=== PATIENT | male | born 1935 | race Caucasian/White ===

== ENCOUNTER 2016-12-18 07:18 | Inpatient (IN) | payer OTHER ==
[2016-12-18 07:29] VITALS: BMI 29.8
[2016-12-18] MEDS ORDERED: NS 1000 ML 1,000 ML ONE (07:31)
[2016-12-18] MEDS ORDERED: ADENOCARD INJ 6 MG ONE (07:32)
[2016-12-18] MEDS ORDERED: ADENOCARD INJ 6 MG IVP ONE (07:38)
[2016-12-18] MEDS ORDERED: NS 1000 ML 1,000 ML IV ONE (07:40)
[2016-12-18 07:49] LABS: BASOPHILS % (AUTO) 0.4 % (0.2-1.0); EOSINOPHILS % (AUTO) 0.1 % (0.9-2.9); HEMATOCRIT 41.6 % (42.0-54.0); HEMOGLOBIN 14.4 g/dL (13.5-18.0); LYMPHOCYTES # (AUTO) 0.4 X10^3/uL (1.3-2.9); LYMPHOCYTES % (AUTO) 3.6 % (21.0-51.0); MEAN CORPUSCULAR HEMOGLOBIN 32.2 pg (27.0-34.0); MEAN CORPUSCULAR HGB CONC 34.6 g/dL (33.0-35.0); MEAN CORPUSCULAR VOLUME 93.2 fL (80.0-100.0); MEAN PLATELET VOLUME 8.1 fL (7.4-11.0); MONOCYTES # (AUTO) 0.5 x10^3/uL (0.3-0.8); MONOCYTES % (AUTO) 5.2 % (0.0-13.0); NEUTROPHILS # (AUTO) 9.1 x10^3/uL (2.2-4.8); NEUTROPHILS % (AUTO) 90.7 % (42.0-75.0); PLATELET COUNT 113 X10^3/uL (150.0-450.0); RED BLOOD COUNT 4.46 X10^6/uL (4.7-6.0); RED CELL DISTRIBUTION WIDTH 13.8 % (11.6-16.5)
--- NOTE | 2016-12-18 07:51 | DR.PBODFLE ---
HPI - PCP Primary Care Physician: jose m - Complaint/Symptoms Chief Complaint Doctors Comments: Family member reports that on was not feeling well, following day was on the road stranded in car for prolong time. Today progressing got worse. He does not have a history of cardiopulmonary disease. He had a stroke several years ago. In the cardiac room his EKG showed A.Fib rate 173, sponstaneously converted to tachycardia. Patient given adenosine x1. Continued to be in tachycardia, rate variable. Chief Complaint:: family stated he has been talking out of his head for over a week. 4 days ago he got worse - Source History Provided: Patient - Mode of arrival Mode of Arrival: Ambulatory - Timing Onset of Chief Complaint: 12/11/16 <MARIUM CALERO - Last Filed: 12/18/16 07:47> - Time seen Time seen: 07:45 - HPI Comment HPI Comment: PATIENT IS 81YR OLD MALE. - Nurses notes reviewed Nurses Notes Review: Yes <MARIAH TEJEDA - Last Filed: 12/18/16 09:54> PMH - Past Surgical History Past Surgical History: Yes - Family History History of Family Medical Conditions: Yes - Social Does patient currently use any type of tobacco product: No Have you used tobacco products in the last 12 months: No Type of Tobacco Use: None Does any household member use tobacco: No Alcohol Use: None - infectious screening In the last 2 months have you had wt loss of >10#?: NO Have you had fever, night sweats or hemotysis?: No Have you traveled outside the country in the last 6 months?: No Isolation: Standard <MARIUM CALERO - Last Filed: 12/18/16 07:47> ROS (Ped) - Review of Systems Eyes: No Symptoms Reported ENTM: No Symptoms Reported Respiratoy: No Symptoms Reported Cardiovascular: No Symptoms Reported Gastrointestinal/Abdominal: No Symptoms Reported Genitourinary: No Symptoms Reported Neurological: No Symptoms Reported Musculoskeletal: No Symptoms Reported Integumentary: No Symptoms Reported Hematologic/Lymphatic: No Symptoms Reported Endocrine: No Symptoms Reported Psychiatric: No Symptoms Reported All Other Systems: Reviewed and Negative <MARIUM CALERO - Last Filed: 12/18/16 07:47> PE - General Limitations: No Limitations General Appearance: Alert, In No Apparent Distress - Head Head Exam: Normal Inspection, Atraumatic - Eyes Eye exam: Normal Appearance, PERRL, EOMI - ENT ENT Exam: Normal Exam External Ear Exam: Normal External Inspection TM/Canal Exam: Bilateral Normal Nose Exam: Normal Nose Exam Mouth Exam: Normal Inspection Throat Exam: Normal Inspection - Neck Neck Exam: Normal Inspection - Chest Chest Inspection: Normal Inspection - Respiratory Respiratory Exam: Normal Lung Sounds Bilat Respiratory Exam: Bilateral Clear to Auscultation - Cardiovascular Cardiovascular Exam: Regular Rate, Tachycardia - Abdominal Exam Abdominal Exam: Normal Inspection Abdominal Tenderness: negative: RUQ, RLQ, LUQ, LLQ, Epigastrium, Suprapubic, Diffuse, Mild, Moderate, Severe, Other - Extremities Extremities Exam: Normal Inspection - Back Back Exam: Normal Inspection - Neurologic Neurological Exam: Alert, Oriented X3, CN II-XII Intact - Psychiatric Psychiatric Exam: Normal Affect <MARIUM CALERO - Last Filed: 12/18/16 07:47> MDM - Differential Diagnosis Differential diagnosis: negative: Abrasion (A FIB, [place], NEAR [place], [place], GENERALIZE WEAKNESS.) <MARIAH TEJEDA - Last Filed: 12/18/16 09:54> Course - Treatment Treatment: SEE ORDERS. ADENOSINE IN ED. CARDIOZINE DRIP IN ED. A FIB RATE IMPROVE. - Consultation Consultation Comments: DR MONTOYA WILL ADMIT PATIENT. - Education/Counseling Education/Counseling: Patient, Family, Education Educated On: Treatment, Diagnosis <MARIAH TEJEDA - Last Filed: 12/18/16 09:54> ROR - Labs Reviewed Result Diagrams: 12/18/16 07:35 12/18/16 07:35 <MARIUM CALERO - Last Filed: 12/18/16 07:47> - Labs Reviewed Laboratory Results Reviewed?: Yes Result Diagrams: 12/18/16 07:35 12/18/16 07:35 - XRAY XRAY Findings: REPORT DISCUSS WITH PATIENT. - EKG Rhythm: Afib (EKG NOTED) <MARIAH TEJEDA - Last Filed: 12/18/16 09:54> - Labs Reviewed Laboratory: WBC 10.0 X10^3/uL (3.6-10.0) 12/18/16 07:35 RBC 4.46 X10^6/uL (4.7-6.0) L 12/18/16 07:35 Hgb 14.4 g/dL (13.5-18.0) 12/18/16 07:35 Hct 41.6 % (42.0-54.0) L 12/18/16 07:35 MCV 93.2 fL (80.0-100.0) 12/18/16 07:35 MCH 32.2 pg (27.0-34.0) 12/18/16 07:35 MCHC 34.6 g/dL (33.0-35.0) 12/18/16 07:35 RDW 13.8 % (11.6-16.5) 12/18/16 07:35 Plt Count 113 X10^3/uL (150.0-450.0) L 12/18/16 07:35 Plt Count Comment Decreased (ADEQUATE) 12/18/16 07:35 MPV 8.1 fL (7.4-11.0) 12/18/16 07:35 Neut % 90.7 % (42.0-75.0) H 12/18/16 07:35 Lymph % 3.6 % (21.0-51.0) L 12/18/16 07:35 [place] % 5.2 % (0.0-13.0) 12/18/16 07:35 Eos % 0.1 % (0.9-2.9) L 12/18/16 07:35 Baso % 0.4 % (0.2-1.0) 12/18/16 07:35 Neut # 9.1 x10^3/uL (2.2-4.8) H 12/18/16 07:35 Lymph # 0.4 X10^3/uL (1.3-2.9) L 12/18/16 07:35 [place] # 0.5 x10^3/uL (0.3-0.8) 12/18/16 07:35 Eos # 0.0 x10^3/uL (0.0-0.2) 12/18/16 07:35 Baso # 0.0 X10^3/uL (0.0-0.1) 12/18/16 07:35 Absolute Nucleated RBC 0.1 /100WBC 12/18/16 07:35 Total Counted 100 12/18/16 07:35 Neutrophils % (Manual) 87 % (39-76) H 12/18/16 07:35 Band Neutrophils % 5 % (0-10) 12/18/16 07:35 Lymphocytes % (Manual) 4 % (13-43) L 12/18/16 07:35 Monocytes % (Manual) 4 % (4-9) 12/18/16 07:35 Plt Morphology Comment Normal (NORMAL) 12/18/16 07:35 RBC Morphology Normal (NORMAL) 12/18/16 07:35 INR Target Range - 12/18/16 07:35 INR 2.05 (0.8-1.3) H 12/18/16 07:35 PTT 39.0 SECONDS (22.9-36.5) H 12/18/16 07:35 PTT Comment - 12/18/16 07:35 Sodium 138 mmol/L (136-145) 12/18/16 07:35 Corrected Sodium 139 mmol/L (136-145) 12/18/16 07:35 Potassium 3.2 mmol/L (3.5-5.1) L 12/18/16 07:35 Chloride 101 mmol/L (98-107) 12/18/16 07:35 Carbon Dioxide 28.1 mmol/L (21-32) 12/18/16 07:35 BUN 22 mg/dL (7-18) H 12/18/16 07:35 Creatinine 1.60 mg/dL (0.70-1.30) H 12/18/16 07:35 Est GFR (MDRD) Af Amer 53 (>60) L 12/18/16 07:35 Est GFR (MDRD) Non-Af 44 (>60) L 12/18/16 07:35 Glucose 121 mg/dL (65-99) H 12/18/16 07:35 Calcium 8.4 mg/dL (8.5-10.1) L 12/18/16 07:35 Corrected Calcium 9.5 mg/dL (8.5-10.1) 12/18/16 07:35 Magnesium 2.0 mg/dL (1.7-2.9) 12/18/16 07:35 Total Bilirubin 1.80 mg/dL (0.2-1.0) H 12/18/16 07:35 AST 53 Units/L (15-37) H 12/18/16 07:35 ALT 31 Units/L (12-78) 12/18/16 07:35 Alkaline Phosphatase 126 Units/L (46-116) H 12/18/16 07:35 Creatine Kinase 159 Units/L (39-308) 12/18/16 07:35 CK-MB (CK-2) 2.0 ng/mL (0-4.0) 12/18/16 07:35 CK/CKMB % Calc 1.3 % (<4) 12/18/16 07:35 Troponin I < 0.02 ng/mL (0-1.5) 12/18/16 07:35 Total Protein 6.8 g/dL (6.4-8.2) 12/18/16 07:35 Albumin 2.6 g/dL (3.4-5.0) L 12/18/16 07:35 Globulin 4.2 g/dL (2.5-4.5) 12/18/16 07:35 Albumin/Globulin Ratio 0.6 Ratio (1.1-2.1) L 12/18/16 07:35 Specimen Type Clean catch urine 12/18/16 07:50 Urine Color Yellow (YELLOW) 12/18/16 07:50 Urine Appearance Hazy (CLEAR) 12/18/16 07:50 Urine pH 6.0 (5.0 - 8.0) 12/18/16 07:50 Ur Specific [place] 1.015 (1.000-1.030) 12/18/16 07:50 Urine Protein 3+ (NEGATIVE) 12/18/16 07:50 Urine Glucose (UA) Negative (NEGATIVE) 12/18/16 07:50 Urine Ketones Negative (NEGATIVE) 12/18/16 07:50 Urine Occult Blood 5+ (NEGATIVE) 12/18/16 07:50 Urine Nitrite Negative (NEGATIVE) 12/18/16 07:50 Urine Bilirubin 1+ (NEGATIVE) 12/18/16 07:50 Urine Urobilinogen 4+ (NORMAL) 12/18/16 07:50 Ur Leukocyte Esterase Negative (NEGATIVE) 12/18/16 07:50 Urine RBC 5-10 /HPF (NEGATIVE) 12/18/16 07:50 Urine WBC 0-3 /HPF (NEGATIVE) 12/18/16 07:50 Ur Squamous Epith Cells Few /HPF (NEGATIVE) 12/18/16 07:50 Amorphous Sediment 1+ /HPF (NEGATIVE) 12/18/16 07:50 Urine Bacteria Trace /HPF (NEGATIVE) 12/18/16 07:50 Granular Casts Few /LPF (NEGATIVE) 12/18/16 07:50 Ur Culture Indicated? No/not indicated 12/18/16 07:50 (MARIAH TEJEDA) <MARIUM CALERO - Last Filed: 12/18/16 07:47> <MARIAH TEJEDA - Last Filed: 12/18/16 09:54> - Diagnosis Discharge Problem: New onset a-fib, Hypokalemia, Near syncope, Generalized weakness - Discharge Plan Disposition: ADMITTED INPATIENT Condition: Stable - Follow ups/Referrals Follow ups/Referrals: Epifanio Montoya [Primary Care Provider] - 3 days - Instructions
[2016-12-18 08:04] LABS: BAND NEUTROPHILS % 5 % (0-10); PLATELET MORPHOLOGY COMMENT NORMAL (NORMAL)
[2016-12-18 08:05] LABS: BILIRUBIN,URINE 1+ (NEGATIVE); BLOOD/HEMOGLOBIN,URINE 5+ (NEGATIVE); GLUCOSE, URINE NEGATIVE (NEGATIVE); KETONES,URINE NEGATIVE (NEGATIVE); LEUKOCYTE ESTERASE ,URINE NEGATIVE (NEGATIVE); NITRITES,URINE NEGATIVE (NEGATIVE); PROTEIN,URINE 3+ (NEGATIVE); UROBILINOGEN,URINE 4+ (NORMAL)
[2016-12-18] MEDS ORDERED: CARDIZEM INJ 50 MG VIAL IVP ONE ×2 (08:07→08:49)
--- NOTE | 2016-12-18 08:11 | RAD ---
HISTORY: Chest pain. Study: Portable chest. Comparison: None. Findings: The trachea is midline. The cardiac silhouette is at the upper limits of normal. No obvious focal consolidation, pleural effusion, or pneumothorax. The bony thorax is unremarkable. IMPRESSION: 1. No acute cardiopulmonary disease. Reported By:
[2016-12-18] MEDS ORDERED: CARDIZEM INJ 125 MG VIAL ONE (08:12)
[2016-12-18] MEDS ORDERED: NS 100 ML IV 100 ML IV ONE ×2 (08:13)
[2016-12-18 08:15] LABS: BLOOD UREA NITROGEN 22 mg/dL (7-18); CALCIUM 8.4 mg/dL (8.5-10.1); CARBON DIOXIDE 28.1 mmol/L (21-32); CHLORIDE 101 mmol/L (98-107); COR NA(FOR HYPERGLY) 139 mmol/L (136-145); GLUCOSE 121 mg/dL (65-99); SODIUM 138 mmol/L (136-145); TROPONIN I < 0.02 ng/mL (0-1.5); eGFR BLACK RACES 53 (>60); eGFR NON BLACK RACES 44 (>60)
[2016-12-18 08:19] LABS: ALANINE AMINOTRANSFERASE 31 Units/L (12-78); ALBUMIN 2.6 g/dL (3.4-5.0); ALKALINE PHOSPHATASE 126 Units/L (46-116); ASPARTATE AMINO TRANSFERASE 53 Units/L (15-37); CKMB % 1.3 % (<4); COR CA(FOR HYPOALB) 9.5 mg/dL (8.5-10.1); CREATINE KINASE 159 Units/L (39-308); TOTAL PROTEIN 6.8 g/dL (6.4-8.2)
[2016-12-18 08:19] LABS: APPEARANCE,URINE HAZY (CLEAR); COLOR,URINE YELLOW (YELLOW)
[2016-12-18 08:20] LABS: AMORPHOUS SEDIMENT,UR 1+ /HPF (NEGATIVE); BACTERIA,URINE TRACE /HPF (NEGATIVE); GRANULAR CASTS,URINE FEW /LPF (NEGATIVE); SQUAMOUS EPITHELIAL CELL,UR FEW /HPF (NEGATIVE)
[2016-12-18] MEDS: CARDIZEM INJ 125 MG VIAL 125 MG in NS 100 ML IV 100 ML IV PRN ×2 (08:24→17:24)
[2016-12-18] MEDS: NS 1000 ML 1,000 ML IV SCH ×2 (09:40→21:42)
[2016-12-18 14:26] LABS: TROPONIN I 0.07 ng/mL (0-1.5)
[2016-12-18 15:19] LABS: CKMB % 1.5 % (<4); CREATINE KINASE MB 2.3 ng/mL (0-4.0)
[2016-12-18] MEDS ORDERED: ATIVAN TAB 1 MG PO PRN (17:17)
[2016-12-18] MEDS ORDERED: K-RIDER 10 MEQ/NS 100 ML 10 MEQ/100 ML BAG IV PRN (17:44)
[2016-12-18] MEDS ORDERED: K-LYTE EFFERVESCENT PO PRN (17:44)
[2016-12-18] MEDS ORDERED: POTASSIUM CHLORIDE LIQ 20 MEQ UDC PO PRN (17:44)
[2016-12-18] MEDS: K-DUR TAB 20 MEQ PO PRN (18:09)
--- NOTE | 2016-12-18 18:12 | DR.H&P ---
H&P - History & Physical for Day of: H&P Date: 12/18/16 - Chief Complaint Chief Complaint: WEAKNESS, NAUSEA, VOMITING, CONFUSION - Allergies Allergies/Adverse Reactions: Allergies Allergy/AdvReac Type Severity Reaction Status Date / Time No Known Drug Allergies Allergy Verified 12/18/16 08:48 - History of Present Illness History of Present Illness: IS A 81 YEAR OLD PATIENT OF OURS WHO PRESENTED TO THE EMERGENCY ROOM WITH COMPLAINTS OF WEAKNESS, NAUSEA, VOMITING, AND CONFUSION. PATIENT'S FAMILY REPORTS THAT PATIENT HAS BEEN "TALKING OUT OF HIS HEAD" SINCE SUNDAY. PATIENT'S FAMILY REPORTS THAT PATIENT WAS BROKE DOWN IN HIS CAR A FEW DAYS AGO AND NEARLY PASSED OUT AFTER SITTING IN THE HEAT. ON ARRIVAL TO ER, PATIENT WAS PLACED ON MESS COOK WHERE HE WAS FOUND TO BE IN ATRIAL FIBRILLATION WITH A RATE OF 173. HE SPONTANEOUSLY CONVERTED TO SINUS TACHYCARDIA. HE WAS GIVEN A BOLUS OF ADENOSINE. HE CONTINUED TO BE IN TACHYCARDIA, WITH A VARIABLE RATE. ON ARRIVAL TO ER, VITALS WERE 100.6-188-18- 100%-121/65. CBC WNL EXCEPT RBC 4.46, HCT 41.6. CMP WNL EXCEPT POTASSIUM 3.2, BUN 22, CREATININE 1.60, GLUCOSE 121, CALCIUM 8.4, TOTAL BILIRUBIN 1.80, AST 53 , ALKALINE PHOSPHATASE 126, ALBUMIN 2.6. INR 2.05, PTT 39. URINALYSIS REPORTED WBC 0-3, RBC 5-10, LEUKOCYTES NEGATIVE, PROTEIN 3+, TRACE OF BACTERIA, NITRATES NEGATIVE, OCCULT BLOOD 5+. CHEST XRAY NEGATIVE. EKG REPORTED ATRIAL FIBRILLATION WITH RVR, PAIRED PVCs.HE WAS GIVEN A NS BOLUS AND STARTED ON A CARDIZEM DRIP. WE ADMITTED PATIENT FOR FURTHER TREATMENT AND EVALUATION. WE STARTED HIM ON NS @ 150ML/HR, CONTINUED CARDIZEM DRIP, AND STARTED PATIENT ON THE POTASSIUM PROTOCOL. WE PLANNED TO RECHECK LABS AND FOLLOW UP WITH PATIENT IN AM. - Past Medical History Past Medical History: GERD, Hypertension, Hypothyroidism - Family History Family Medical History: Coronary Artery Disease - Social History Does patient currently use any type of tobacco product: No Have you used tobacco products in the last 12 months: No Type of Tobacco Use: None Does any household member use tobacco: No Alcohol Use: None Drug Use: None - Medications Home Medications: Furosemide [Furosemide] 40 mg PO DAILY 12/18/16 [History Confirmed 12/18/16] Levothyroxine Sodium [Levoxyl] 137 mcg PO DAILY 12/18/16 [History Confirmed ] Metoprolol Tartrate [Metoprolol Tartrate] 25 mg PO BID 12/18/16 [History Confirmed 12/18/16] Rivaroxaban [Xarelto] 20 mg PO DAILY 12/18/16 [History Confirmed 12/18/16] Simvastatin [Simvastatin] 40 mg PO HS 12/18/16 [History Confirmed 12/18/16] Tamsulosin HCl [Tamsulosin HCl] 0.4 mg PO HS 12/18/16 [History Confirmed ] Ubidecarenone [Co Q10] 200 mg PO DAILY 12/18/16 [History Confirmed 12/18/16] - Review of Systems Constitutional: Weakness Eyes: No Symptoms Reported. denies: See HPI, Pain, Vision Change, Conjunctivae Inflammation, Eyelid Inflammation, Redness, Other ENT: No Symptoms Reported. denies: See HPI, Ear Pain, Ear Discharge, Nose Pain , Nose Discharge, Nose Congestion, Mouth Pain, Mouth Swelling, Throat Pain, Throat Swelling, Other Respiratory: No Symptoms Reported. denies: See HPI, Cough, Dry, Shortness of Breath, Hemoptysis, SOB with Excertion, Pleuritic Pain, Sputum, Wheezing, Other Cardiovascular: See HPI. denies: No Symptoms Reported, Chest Pain, Palpitations , Orthopnea, Paroxysmal Noc. Dyspnea, Edema, Light Headedness, Other Gastrointestinal: See HPI, Nausea, Vomiting. denies: No Symptoms Reported, Abdominal Pain, Diarrhea, Constipation, Melena, Hematochezia, Other Genitourinary: No Symptoms Reported. denies: See HPI, Dysuria, Frequency, Incontinence, Hematuria, Retention, Other Musculoskeletal: No Symptoms Reported. denies: See HPI, Shoulder Pain, Arm Pain , Back Pain, Hand Pain, Leg Pain, Foot Pain, Neck Pain, Other Skin: No Symptoms Reported. denies: See HPI, Rash, Lesions, Jaundice, Bruising , Wound, Ecchymosis, Other Neurological: See HPI, Weakness, Confusion. denies: No Symptoms Reported, Numbness, Incoordination, Change in Speech, Seizures, Other - Physical Exam Vital Signs: Temperature 98.1 F Pulse Rate [Right Brachial] 97 Respiratory Rate 24 Blood Pressure [Right Arm] 105/68 O2 Sat by Pulse Oximetry 99 Oriented: Normal. negative: Time, Person, Place, Not Oriented, Unable to test, Other Eyes: Normal. negative: Blurred Vision, Diplopia, Discharge, Pain, Redness, Photophobia, Other Ear: Normal. negative: Right, Left, Swelling, Ecchymosis, Hemotypanum, Abrasion , Laceration Nose: Normal. negative: Injected, Discharge, Blood, Other Throat: Normal. negative: Tonsillar Hypertrophy, Red, Exudate, Dry, Other Respiratory: Clear Throughout. negative: Diminished Throughout, Rhonchi Throughout, Rales Throughout, Wheezes Throughout, RUL Clear, RML Clear, RLL Clear, DERICK Clear, LML Clear, LLL Clear, RUL Diminished, RML Diminished, RLL Diminished, DERICK Diminished, LML Diminished, LLL Diminished, RUL Absent, RML Absent, RLL Absent, DERICK Absent, LML Absent, LLL Absent, RUL Rhonchi, RML Rhonchi , RLL Rhonchi, DERICK Rhonchi, LML Rhonchi, LLL Rhonchi, RUL Insp. Wheeze, RML Insp. Wheeze, RLL Insp. Wheeze, DERICK Insp.Wheeze, LML Insp.Wheeze, LLL Insp.Wheeze, RUL Exp. Wheeze, RML Exp. Wheeze, RLL Exp. Wheeze, DERICK Exp. Wheeze , LML Exp. Wheeze, LLL Exp. Wheeze, RUL Rales, RML Rales, RLL Rales, DERICK Rales, LML Rales, LLL Rales, RUL Rub, RML Rub, RLL Rub, DERICK Rub, LML Rub, LLL Rub, RUL Squeak, RML Squeak, RLL Squeak, DERICK Squeak, LML Squeak, LLL Squeak Cardiovascular: Tachycardia. negative: Normal, Bradycardia, Irregular, S3, S4, Systolic, Diastolic, Murmur, Edema, Other : Normal. negative: Dysuria, Hematuria, Frequency, Discharge, Testicular Pain , Bleeding, , Other Auscultation: Bowel Sounds: Normal. negative: Bruit, Absent, Increased, Decreased, High Pitched, Other Palpation: Normal. negative: Spleen Enlarged, Liver Enlarged, Mass Pulsatile, Other Tenderness: Normal. negative: Diffuse, RUQ, RLQ, LUQ, LLQ, Epigastric, Periumbilical, Suprapubic, Mild, Moderate, Severe, Rebound, Guarding, Rigidity, Other Skin: negative: Normal, Decreased Turgur, Rash, Papular, Macular, Maculopapular , Vesicular, Pustular, Petechial, Red, Tender, Hot, Diaphoresis, Wound, Bruising , Ecchymosis, Other Musculoskeletal: Normal. negative: Right, Left, Shoulder, Clavicle, Arm, Elbow , Forearm, Wrist, Hand, Hip, Thigh, Knee, Leg, Ankle, Foot, Back:Thoracic, Back: Lumbar, Back:Midline, Back:Paraspinous, Pelvis, Swelling, Tender, Deformity, Pulse Deficit, Motor Deficit, Sensory Deficit, Instability, Crepitance Psychiatric: Normal. negative: Anxiety, Depression, Agitation, Other Mood Description: Calm. negative: Angry, Apathetic, Depressed, Fearful, Flat, Happy, Hostile, Sad, Suspicious, Withdrawn, Anxious, Appropriate, Labile Affect: Normal Speech Pattern: Clear - Assessment/Plan (1) New onset a-fib Status: Acute Plan: CARDIZEM DRIP, MONITOR LABS AND EKGs (2) Generalized weakness Status: Acute Plan: NS @ 150ML/HE, REPLACE ELECTROLYTES, CONTINUE TO MONITOR (3) Hypokalemia Status: Acute Plan: POTASSIUM PROTOCOL, CONTINUE TO MONITOR (4) Near syncope Status: Acute Plan: CONTINUE TO MONITOR
[2016-12-18 20:56] LABS: CKMB % 1.9 % (<4); CREATINE KINASE MB 3.2 ng/mL (0-4.0); TROPONIN I 0.06 ng/mL (0-1.5)
[2016-12-18 21:34] LABS: BILIRUBIN,URINE 1+ (NEGATIVE); BLOOD/HEMOGLOBIN,URINE 5+ (NEGATIVE); GLUCOSE, URINE NEGATIVE (NEGATIVE); KETONES,URINE NEGATIVE (NEGATIVE); LEUKOCYTE ESTERASE ,URINE NEGATIVE (NEGATIVE); NITRITES,URINE NEGATIVE (NEGATIVE); PROTEIN,URINE 3+ (NEGATIVE); UROBILINOGEN,URINE 4+ (NORMAL)
[2016-12-18 21:43] LABS: AMORPHOUS SEDIMENT,UR 2+ /HPF (NEGATIVE); APPEARANCE,URINE SLIGHTLY HAZY (CLEAR); BACTERIA,URINE TRACE /HPF (NEGATIVE); COLOR,URINE DARK YELLOW (YELLOW); SQUAMOUS EPITHELIAL CELL,UR NEGATIVE /HPF (NEGATIVE)
[2016-12-18] MEDS ORDERED: TYLENOL 325 MG TAB PO PRN (23:06)
[2016-12-18] MEDS: RESTORIL CAP 15 MG PO PRN (23:48)
[2016-12-19] MEDS: CARDIZEM INJ 125 MG VIAL 125 MG in NS 100 ML IV 100 ML IV PRN ×3 (04:09→15:23)
[2016-12-19] MEDS: NS 1000 ML 1,000 ML IV PRN ×2 (04:09→14:15)
[2016-12-19 05:13] LABS: BASOPHILS % (AUTO) 0.3 % (0.2-1.0); EOSINOPHILS % (AUTO) 0.2 % (0.9-2.9); HEMATOCRIT 35.4 % (42.0-54.0); HEMOGLOBIN 12.1 g/dL (13.5-18.0); LYMPHOCYTES # (AUTO) 0.7 X10^3/uL (1.3-2.9); LYMPHOCYTES % (AUTO) 7.4 % (21.0-51.0); MEAN CORPUSCULAR HGB CONC 34.2 g/dL (33.0-35.0); MEAN CORPUSCULAR VOLUME 93.5 fL (80.0-100.0); MEAN PLATELET VOLUME 8.4 fL (7.4-11.0); MONOCYTES # (AUTO) 0.7 x10^3/uL (0.3-0.8); MONOCYTES % (AUTO) 7.7 % (0.0-13.0); NEUTROPHILS # (AUTO) 7.9 x10^3/uL (2.2-4.8); NEUTROPHILS % (AUTO) 84.4 % (42.0-75.0); PLATELET COUNT 114 X10^3/uL (150.0-450.0); RED BLOOD COUNT 3.78 X10^6/uL (4.7-6.0); WHITE BLOOD COUNT 9.3 X10^3/uL (3.6-10.0)
[2016-12-19 05:32] LABS: ALANINE AMINOTRANSFERASE 30 Units/L (12-78); ALBUMIN 2.1 g/dL (3.4-5.0); ALKALINE PHOSPHATASE 131 Units/L (46-116); ASPARTATE AMINO TRANSFERASE 47 Units/L (15-37); BLOOD UREA NITROGEN 16 mg/dL (7-18); CALCIUM 7.5 mg/dL (8.5-10.1); CARBON DIOXIDE 25.6 mmol/L (21-32); CHLORIDE 108 mmol/L (98-107); CHOL/HDL RATIO 6.9 (0.0-5.0); CHOLESTEROL 62 mg/dL (0-200); CREATININE 1.18 mg/dL (0.70-1.30); GLUCOSE 108 mg/dL (65-99); HDL CHOLESTEROL 9 mg/dL (40-60); SODIUM 141 mmol/L (136-145); TOTAL PROTEIN 5.9 g/dL (6.4-8.2); TRIGLYCERIDES 93 mg/dL (0-150); eGFR BLACK RACES > 60 (>60); eGFR NON BLACK RACES > 60 (>60)
[2016-12-19] MEDS ORDERED: PATIENT'S HOME MEDICATION (Rivaroxaban [Xarelto] 20 MG) PO SCH (09:30)
[2016-12-19] MEDS ORDERED: UBIDECARENONE 200 MG PO SCH (09:30)
[2016-12-19] MEDS: CARDIZEM CD 180 MG PO SCH (10:06)
[2016-12-19] MEDS: LASIX PO SCH (10:06)
[2016-12-19] MEDS: LOPRESSOR TAB 50 MG PO SCH ×2 (10:07→20:16)
[2016-12-19] MEDS: ALBUMIN HUMAN 25%- 100ML 100 ML IV SCH (10:09)
[2016-12-19] MEDS: SYNTHROID 137 mcg TAB PO SCH (10:10)
--- NOTE | 2016-12-19 13:37 | PCM.PROG ---
Progress Note - Progress Note for Day of Date: 12/19/16 - Subjective Subjective: IS ALERT AND ORIENTED ON MORNING ROUNDS. HE IS LYING IN BED WITH SPOUSE AND DAUGHTER AT BEDSIDE. HE IS NOTED WITH COMPLAINTS OF WEAKNESS ON MORNING ROUNDS. HE IS NOTED WITH CLEAR LUNGS ON AUSCULTATION. BOWEL SOUNDS ARE NORMAL IN ALL QUADRANTS. CONDUCTOR FREIGHT SHOWS ATRILAL FIBRILATION WITH HR OF 105. VITALS THIS AM ARE 97.6-797-00-100%-132/80. CBC WNL EXCEPT RBC 3.78, HGB 12.1, HCT 35.4. CMP WNL EXCEPT CHLORIDE 108, GLUCOSE 108, CALCIUM 7.5 , TOTAL BILIRUBIN 1.40, ALT 47, ALKALINE PHOSPHATASE 131, TOTAL PROTIEN 5.9, ALBUMIN 2.1, HDL CHOLESTEROL 9, CHOLESTEROL 6.9. INR 1.39, PTT 41.9. EKG REPORTS ATRIAL FIBRILLATION WITH RATE OF 106. STAFF REPORTS THAT PATIENT WAS AGITATED THROUGHOUT THE NIGHT. WE WILL DISCONTINUE THE ATIVAN AND CONTINUE RESTORIL. WE WILL START CARDIZEM CD 180MG DAILY AND PLAN TO WEAN OFF CARDIZEM DRIP. WE PLAN TO CONTINUE WITH CURRENT PLAN OF CARE, RECHECK LABS AND EKG, AND FOLLOW UP WITH PATIENT IN AM. - Past Medical Family Social History Past Med/Fam/Surg Hx: No changes since H&P Allergies: Allergies No Known Drug Allergies Allergy (Verified 12/18/16 08:48) - Review of Systems ROS: No change since H&P - Vital Signs and I&O's Vital Signs: Temperature 99.3 F Pulse Rate [Right Brachial] 90 Respiratory Rate 22 Blood Pressure [Right Arm] 117/70 O2 Sat by Pulse Oximetry 100 Intake and Output: Intake & Output 12/17/16 12/18/16 12/19/16 12/20/16 11:59 11:59 11:59 11:59 Intake Total 3264 Output Total 700 Balance 2564 - Physical Exam Oriented: Normal. negative: Time, Person, Place, Not Oriented, Unable to test, Other Eyes: Normal. negative: Blurred Vision, Diplopia, Discharge, Pain, Redness, Photophobia, Other Ear: Normal. negative: Right, Left, Swelling, Ecchymosis, Hemotypanum, Abrasion , Laceration Nose: Normal. negative: Injected, Discharge, Blood, Other Throat: Normal. negative: Tonsillar Hypertrophy, Red, Exudate, Dry, Other Respiratory: Normal Cardiovascular: Tachycardia. negative: Normal, Bradycardia, Irregular, S3, S4, Systolic, Diastolic, Murmur, Edema, Other : Normal. negative: Dysuria, Hematuria, Frequency, Discharge, Testicular Pain , Bleeding, , Other Auscultation: Bowel Sounds: Normal. negative: Bruit, Absent, Increased, Decreased, High Pitched, Other Palpation: Normal Tenderness: Normal. negative: Diffuse, RUQ, RLQ, LUQ, LLQ, Epigastric, Periumbilical, Suprapubic, Mild, Moderate, Severe, Rebound, Guarding, Rigidity, Other Skin: negative: Normal, Decreased Turgur, Rash, Papular, Macular, Maculopapular , Vesicular, Pustular, Petechial, Red, Tender, Hot, Diaphoresis, Wound, Bruising , Ecchymosis, Other Musculoskeletal: Normal. negative: Right, Left, Shoulder, Clavicle, Arm, Elbow , Forearm, Wrist, Hand, Hip, Thigh, Knee, Leg, Ankle, Foot, Back:Thoracic, Back: Lumbar, Back:Midline, Back:Paraspinous, Pelvis, Swelling, Tender, Deformity, Pulse Deficit, Motor Deficit, Sensory Deficit, Instability, Crepitance Psychiatric: Normal. negative: Anxiety, Depression, Agitation, Other Mood Description: Calm. negative: Angry, Apathetic, Depressed, Fearful, Flat, Happy, Hostile, Sad, Suspicious, Withdrawn, Anxious, Appropriate, Labile Affect: Normal Speech Pattern: Unclear - Laboratory and Diagnostics Result Diagrams: 12/19/16 04:30 12/19/16 04:30 Labs: Laboratory WBC 9.3 X10^3/uL (3.6-10.0) 12/19/16 04:30 RBC 3.78 X10^6/uL (4.7-6.0) L 12/19/16 04:30 Hgb 12.1 g/dL (13.5-18.0) L D 12/19/16 04:30 Hct 35.4 % (42.0-54.0) L 12/19/16 04:30 MCV 93.5 fL (80.0-100.0) 12/19/16 04:30 MCH 32.0 pg (27.0-34.0) 12/19/16 04:30 MCHC 34.2 g/dL (33.0-35.0) 12/19/16 04:30 RDW 14.0 % (11.6-16.5) 12/19/16 04:30 Plt Count 114 X10^3/uL (150.0-450.0) L 12/19/16 04:30 Plt Count Comment Decreased (ADEQUATE) 12/18/16 07:35 MPV 8.4 fL (7.4-11.0) 12/19/16 04:30 Neut % 84.4 % (42.0-75.0) H 12/19/16 04:30 Lymph % 7.4 % (21.0-51.0) L 12/19/16 04:30 [place] % 7.7 % (0.0-13.0) 12/19/16 04:30 Eos % 0.2 % (0.9-2.9) L 12/19/16 04:30 Baso % 0.3 % (0.2-1.0) 12/19/16 04:30 Neut # 7.9 x10^3/uL (2.2-4.8) H 12/19/16 04:30 Lymph # 0.7 X10^3/uL (1.3-2.9) L 12/19/16 04:30 [place] # 0.7 x10^3/uL (0.3-0.8) 12/19/16 04:30 Eos # 0.0 x10^3/uL (0.0-0.2) 12/19/16 04:30 Baso # 0.0 X10^3/uL (0.0-0.1) 12/19/16 04:30 Absolute Nucleated RBC 0.0 /100WBC 12/19/16 04:30 Total Counted 100 12/18/16 07:35 Neutrophils % (Manual) 87 % (39-76) H 12/18/16 07:35 Band Neutrophils % 5 % (0-10) 12/18/16 07:35 Lymphocytes % (Manual) 4 % (13-43) L 12/18/16 07:35 Monocytes % (Manual) 4 % (4-9) 12/18/16 07:35 Plt Morphology Comment Normal (NORMAL) 12/18/16 07:35 RBC Morphology Normal (NORMAL) 12/18/16 07:35 INR Target Range - 12/19/16 04:30 INR 1.39 (0.8-1.3) H 12/19/16 04:30 PTT 41.9 SECONDS (22.9-36.5) H 12/19/16 04:30 PTT Comment - 12/19/16 04:30 Sodium 141 mmol/L (136-145) 12/19/16 04:30 Corrected Sodium TNP 12/19/16 04:30 Potassium 3.6 mmol/L (3.5-5.1) 12/19/16 04:30 Chloride 108 mmol/L (98-107) H 12/19/16 04:30 Carbon Dioxide 25.6 mmol/L (21-32) 12/19/16 04:30 BUN 16 mg/dL (7-18) 12/19/16 04:30 Creatinine 1.18 mg/dL (0.70-1.30) 12/19/16 04:30 Est GFR (MDRD) Af Amer > 60 (>60) 12/19/16 04:30 Est GFR (MDRD) Non-Af > 60 (>60) 12/19/16 04:30 Glucose 108 mg/dL (65-99) H 12/19/16 04:30 Calcium 7.5 mg/dL (8.5-10.1) L 12/19/16 04:30 Corrected Calcium 9.0 mg/dL (8.5-10.1) 12/19/16 04:30 Magnesium 2.0 mg/dL (1.7-2.9) 12/18/16 07:35 Total Bilirubin 1.40 mg/dL (0.2-1.0) H 12/19/16 04:30 AST 47 Units/L (15-37) H 12/19/16 04:30 ALT 30 Units/L (12-78) 12/19/16 04:30 Alkaline Phosphatase 131 Units/L (46-116) H 12/19/16 04:30 Creatine Kinase 172 Units/L (39-308) 12/18/16 20:15 CK-MB (CK-2) 3.2 ng/mL (0-4.0) 12/18/16 20:15 CK/CKMB % Calc 1.9 % (<4) 12/18/16 20:15 Troponin I 0.06 ng/mL (0-1.5) 12/18/16 20:15 Total Protein 5.9 g/dL (6.4-8.2) L 12/19/16 04:30 Albumin 2.1 g/dL (3.4-5.0) L 12/19/16 04:30 Globulin 3.8 g/dL (2.5-4.5) 12/19/16 04:30 Albumin/Globulin Ratio 0.6 Ratio (1.1-2.1) L 12/19/16 04:30 Triglycerides 93 mg/dL (0-150) 12/19/16 04:30 Cholesterol 62 mg/dL (0-200) 12/19/16 04:30 LDL Cholesterol, Calc 34 mg/dL (0-100) 12/19/16 04:30 HDL Cholesterol 9 mg/dL (40-60) L 12/19/16 04:30 Cholesterol/HDL Ratio 6.9 (0.0-5.0) H 12/19/16 04:30 Specimen Type Catherized urine 12/18/16 21:15 Urine Color Dark yellow (YELLOW) 12/18/16 21:15 Urine Appearance Slightly hazy (CLEAR) 12/18/16 21:15 Urine pH 5.0 (5.0 - 8.0) 12/18/16 21:15 Ur Specific [place] 1.020 (1.000-1.030) 12/18/16 21:15 Urine Protein 3+ (NEGATIVE) 12/18/16 21:15 Urine Glucose (UA) Negative (NEGATIVE) 12/18/16 21:15 Urine Ketones Negative (NEGATIVE) 12/18/16 21:15 Urine Occult Blood 5+ (NEGATIVE) 12/18/16 21:15 Urine Nitrite Negative (NEGATIVE) 12/18/16 21:15 Urine Bilirubin 1+ (NEGATIVE) 12/18/16 21:15 Urine Urobilinogen 4+ (NORMAL) 12/18/16 21:15 Ur Leukocyte Esterase Negative (NEGATIVE) 12/18/16 21:15 Urine RBC 8-10 /HPF (NEGATIVE) 12/18/16 21:15 Urine WBC 2-3 /HPF (NEGATIVE) 12/18/16 21:15 Ur Squamous Epith Cells Negative /HPF (NEGATIVE) 12/18/16 21:15 Amorphous Sediment 2+ /HPF (NEGATIVE) 12/18/16 21:15 Urine Bacteria Trace /HPF (NEGATIVE) 12/18/16 21:15 Granular Casts Few /LPF (NEGATIVE) 12/18/16 07:50 Ur Culture Indicated? No/not indicated 12/18/16 21:15 - Plan (1) New onset a-fib Status: Acute Plan: CARDIZEM CD 180MG PO DAILY, WEAN OFF CARDIZEM DRIP, MONITOR LABS AND EKGs (2) Generalized weakness Status: Acute Plan: NS @ 150ML/HE, REPLACE ELECTROLYTES, CONTINUE TO MONITOR (3) Hypokalemia Status: Acute Plan: POTASSIUM PROTOCOL, CONTINUE TO MONITOR (4) Near syncope Status: Acute Plan: CONTINUE TO MONITOR
[2016-12-19] MEDS: FLOMAX PO SCH (20:16)
[2016-12-19] MEDS: RESTORIL CAP 15 MG PO PRN (20:16)
[2016-12-19] MEDS: XARELTO PO SCH (20:17)
[2016-12-19] MEDS: ZOCOR TAB 40 MG PO SCH (20:17)
[2016-12-20 04:55] LABS: BASOPHILS % (AUTO) 0.1 % (0.2-1.0); EOSINOPHILS % (AUTO) 0.3 % (0.9-2.9); HEMATOCRIT 35.7 % (42.0-54.0); HEMOGLOBIN 12.3 g/dL (13.5-18.0); LYMPHOCYTES # (AUTO) 0.4 X10^3/uL (1.3-2.9); LYMPHOCYTES % (AUTO) 3.9 % (21.0-51.0); MEAN CORPUSCULAR HEMOGLOBIN 32.5 pg (27.0-34.0); MEAN CORPUSCULAR HGB CONC 34.5 g/dL (33.0-35.0); MEAN PLATELET VOLUME 8.3 fL (7.4-11.0); MONOCYTES # (AUTO) 0.7 x10^3/uL (0.3-0.8); MONOCYTES % (AUTO) 6.4 % (0.0-13.0); NEUTROPHILS # (AUTO) 9.1 x10^3/uL (2.2-4.8); NEUTROPHILS % (AUTO) 89.3 % (42.0-75.0); PLATELET COUNT 127 X10^3/uL (150.0-450.0); RED BLOOD COUNT 3.79 X10^6/uL (4.7-6.0); WHITE BLOOD COUNT 10.2 X10^3/uL (3.6-10.0)
[2016-12-20 05:27] LABS: ALANINE AMINOTRANSFERASE 28 Units/L (12-78); ALBUMIN 2.4 g/dL (3.4-5.0); ALKALINE PHOSPHATASE 151 Units/L (46-116); ASPARTATE AMINO TRANSFERASE 36 Units/L (15-37); BLOOD UREA NITROGEN 12 mg/dL (7-18); CALCIUM 7.7 mg/dL (8.5-10.1); CARBON DIOXIDE 28.7 mmol/L (21-32); CHLORIDE 106 mmol/L (98-107); CREATININE 1.05 mg/dL (0.70-1.30); GLUCOSE 95 mg/dL (65-99); SODIUM 141 mmol/L (136-145); TOTAL PROTEIN 6.2 g/dL (6.4-8.2); eGFR BLACK RACES > 60 (>60); eGFR NON BLACK RACES > 60 (>60)
--- NOTE | 2016-12-20 06:19 | RAD ---
HISTORY: Shortness of breath Study: Chest one view Comparison: December 18, 2016 Findings: The trachea is midline. The cardiac silhouette is enlarged. No congestive heart failure is noted. T he aorta is calcified.. The lungs are clear without focal infiltrate or effusion. The bony thorax is unremarkable. IMPRESSION: 1. Mild cardiomegaly without congestive heart failure 2. Lungs clear Reported By:
[2016-12-20] MEDS: ALBUMIN HUMAN 25%- 100ML 100 ML IV SCH (08:44)
[2016-12-20] MEDS: LASIX PO SCH (08:45)
[2016-12-20] MEDS: SYNTHROID 137 mcg TAB PO SCH (08:45)
[2016-12-20] MEDS: LOPRESSOR TAB 50 MG PO SCH ×2 (08:45→20:59)
[2016-12-20] MEDS: CARDIZEM CD 180 MG PO SCH (08:46)
[2016-12-20] MEDS: K-DUR TAB 20 MEQ PO PRN (08:53)
[2016-12-20] MEDS ORDERED: LASIX IVP ONE (09:20)
[2016-12-20] MEDS ORDERED: LANOXIN INJ IVP ONE (09:21)
[2016-12-20] MEDS: DUONEB 0.5 MG/3 MG NEB SCH ×3 (12:20→20:20)
--- NOTE | 2016-12-20 20:21 | PCM.PROG ---
Progress Note - Progress Note for Day of Date: 12/20/16 - Subjective Subjective: IS LYING IN BED ON MORNING ROUNDS WITH EYES CLOSED. HE AWAKENS AND RESPONDS TO VERBAL STIMULI. PATIENT'S FAMILY IS AT BEDSIDE. HE IS NOTED WITH COMPLAINTS OF SHORTNESS OF BREATH THIS AM. LUNGS ARE NOTED WITH WHEEZING BILATERALLY ON AUSCULTATION. VITALS THIS AM ARE 98.1-115-22-97%-110/ 68. CBC WNL EXCEPT WBC 10.2, RBC 3.79, HGB 12.3, HCT 35.7. CMP WNL EXCEPT SODIUM 141, POTASSIUM 3.3, CALCIUM 7.7, ALKALINE PHOSPHATASE 151, TOTAL PROTEIN 6.2, ALBUMIN 2.4. EKG OBTAINED THIS AM REPORTED A-FIB WITH RATE OF 96. CHEST XRAY REPORTED MILD CARDIOMEGALY WITH OUT CHF, LUNGS CLEAR. WE WILL GIVE PATIENT DIGOXIN 250MCG IV X 1 AND LASIX 20MG IV X 1 DOSE. WE WILL ORDER DUONEBS Q4H AND OBTAIN AN ECHO. WE PLAN TO RECHECK LABS AND FOLLOW UP WITH PATIENT IN AM. - Past Medical Family Social History Past Med/Fam/Surg Hx: No changes since H&P Allergies: Allergies lorazepam [From Ativan] Adverse Reaction (Verified 12/19/16 16:25) - Review of Systems ROS: No change since H&P - Vital Signs and I&O's Vital Signs: Temperature 97.6 F Pulse Rate [Right Brachial] 103 Pulse Rate 90 Respiratory Rate 26 Blood Pressure [Right Arm] 131/73 Blood Pressure [Left Arm] 106/58 Blood Pressure 121/65 O2 Sat by Pulse Oximetry 93 Intake and Output: Intake & Output 12/18/16 12/19/16 12/20/16 12/21/16 11:59 11:59 11:59 11:59 Intake Total 3314 1682 0 Output Total 700 Balance 2614 1682 0 - Physical Exam Oriented: Normal. negative: Time, Person, Place, Not Oriented, Unable to test, Other Eyes: Normal. negative: Blurred Vision, Diplopia, Discharge, Pain, Redness, Photophobia, Other Ear: Normal. negative: Right, Left, Swelling, Ecchymosis, Hemotypanum, Abrasion , Laceration Nose: Normal. negative: Injected, Discharge, Blood, Other Throat: Normal. negative: Tonsillar Hypertrophy, Red, Exudate, Dry, Other Respiratory: Right, Left, Wheezes Cardiovascular: Tachycardia. negative: Normal, Bradycardia, Irregular, S3, S4, Systolic, Diastolic, Murmur, Edema, Other : Normal. negative: Dysuria, Hematuria, Frequency, Discharge, Testicular Pain , Bleeding, , Other Auscultation: Bowel Sounds: Normal. negative: Bruit, Absent, Increased, Decreased, High Pitched, Other Palpation: Normal Tenderness: Normal. negative: Diffuse, RUQ, RLQ, LUQ, LLQ, Epigastric, Periumbilical, Suprapubic, Mild, Moderate, Severe, Rebound, Guarding, Rigidity, Other Skin: negative: Normal, Decreased Turgur, Rash, Papular, Macular, Maculopapular , Vesicular, Pustular, Petechial, Red, Tender, Hot, Diaphoresis, Wound, Bruising , Ecchymosis, Other Musculoskeletal: Normal. negative: Right, Left, Shoulder, Clavicle, Arm, Elbow , Forearm, Wrist, Hand, Hip, Thigh, Knee, Leg, Ankle, Foot, Back:Thoracic, Back: Lumbar, Back:Midline, Back:Paraspinous, Pelvis, Swelling, Tender, Deformity, Pulse Deficit, Motor Deficit, Sensory Deficit, Instability, Crepitance Psychiatric: Normal. negative: Anxiety, Depression, Agitation, Other Mood Description: Calm. negative: Angry, Apathetic, Depressed, Fearful, Flat, Happy, Hostile, Sad, Suspicious, Withdrawn, Anxious, Appropriate, Labile Affect: Normal Speech Pattern: Unclear - Laboratory and Diagnostics Result Diagrams: 12/20/16 03:20 12/20/16 12:52 Labs: Laboratory WBC 10.2 X10^3/uL (3.6-10.0) H 12/20/16 03:20 RBC 3.79 X10^6/uL (4.7-6.0) L 12/20/16 03:20 Hgb 12.3 g/dL (13.5-18.0) L 12/20/16 03:20 Hct 35.7 % (42.0-54.0) L 12/20/16 03:20 MCV 94.0 fL (80.0-100.0) 12/20/16 03:20 MCH 32.5 pg (27.0-34.0) 12/20/16 03:20 MCHC 34.5 g/dL (33.0-35.0) 12/20/16 03:20 RDW 14.0 % (11.6-16.5) 12/20/16 03:20 Plt Count 127 X10^3/uL (150.0-450.0) L 12/20/16 03:20 Plt Count Comment Decreased (ADEQUATE) 12/18/16 07:35 MPV 8.3 fL (7.4-11.0) 12/20/16 03:20 Neut % 89.3 % (42.0-75.0) H 12/20/16 03:20 Lymph % 3.9 % (21.0-51.0) L 12/20/16 03:20 [place] % 6.4 % (0.0-13.0) 12/20/16 03:20 Eos % 0.3 % (0.9-2.9) L 12/20/16 03:20 Baso % 0.1 % (0.2-1.0) L 12/20/16 03:20 Neut # 9.1 x10^3/uL (2.2-4.8) H 12/20/16 03:20 Lymph # 0.4 X10^3/uL (1.3-2.9) L 12/20/16 03:20 [place] # 0.7 x10^3/uL (0.3-0.8) 12/20/16 03:20 Eos # 0.0 x10^3/uL (0.0-0.2) 12/20/16 03:20 Baso # 0.0 X10^3/uL (0.0-0.1) 12/20/16 03:20 Absolute Nucleated RBC 0.0 /100WBC 12/20/16 03:20 Total Counted 100 12/18/16 07:35 Neutrophils % (Manual) 87 % (39-76) H 12/18/16 07:35 Band Neutrophils % 5 % (0-10) 12/18/16 07:35 Lymphocytes % (Manual) 4 % (13-43) L 12/18/16 07:35 Monocytes % (Manual) 4 % (4-9) 12/18/16 07:35 Plt Morphology Comment Normal (NORMAL) 12/18/16 07:35 RBC Morphology Normal (NORMAL) 12/18/16 07:35 INR Target Range - 12/19/16 04:30 INR 1.39 (0.8-1.3) H 12/19/16 04:30 PTT 41.9 SECONDS (22.9-36.5) H 12/19/16 04:30 PTT Comment - 12/19/16 04:30 Sodium 141 mmol/L (136-145) 12/20/16 03:20 Corrected Sodium TNP 12/20/16 03:20 Potassium 3.4 mmol/L (3.5-5.1) L 12/20/16 12:52 Chloride 106 mmol/L (98-107) 12/20/16 03:20 Carbon Dioxide 28.7 mmol/L (21-32) 12/20/16 03:20 BUN 12 mg/dL (7-18) 12/20/16 03:20 Creatinine 1.05 mg/dL (0.70-1.30) 12/20/16 03:20 Est GFR (MDRD) Af Amer > 60 (>60) 12/20/16 03:20 Est GFR (MDRD) Non-Af > 60 (>60) 12/20/16 03:20 Glucose 95 mg/dL (65-99) 12/20/16 03:20 Calcium 7.7 mg/dL (8.5-10.1) L 12/20/16 03:20 Corrected Calcium 9.0 mg/dL (8.5-10.1) 12/20/16 03:20 Magnesium 2.0 mg/dL (1.7-2.9) 12/18/16 07:35 Total Bilirubin 1.10 mg/dL (0.2-1.0) H 12/20/16 03:20 AST 36 Units/L (15-37) 12/20/16 03:20 ALT 28 Units/L (12-78) 12/20/16 03:20 Alkaline Phosphatase 151 Units/L (46-116) H 12/20/16 03:20 Creatine Kinase 172 Units/L (39-308) 12/18/16 20:15 CK-MB (CK-2) 3.2 ng/mL (0-4.0) 12/18/16 20:15 CK/CKMB % Calc 1.9 % (<4) 12/18/16 20:15 Troponin I 0.06 ng/mL (0-1.5) 12/18/16 20:15 Total Protein 6.2 g/dL (6.4-8.2) L 12/20/16 03:20 Albumin 2.4 g/dL (3.4-5.0) L 12/20/16 03:20 Globulin 3.8 g/dL (2.5-4.5) 12/20/16 03:20 Albumin/Globulin Ratio 0.6 Ratio (1.1-2.1) L 12/20/16 03:20 Triglycerides 93 mg/dL (0-150) 12/19/16 04:30 Cholesterol 62 mg/dL (0-200) 12/19/16 04:30 LDL Cholesterol, Calc 34 mg/dL (0-100) 12/19/16 04:30 HDL Cholesterol 9 mg/dL (40-60) L 12/19/16 04:30 Cholesterol/HDL Ratio 6.9 (0.0-5.0) H 12/19/16 04:30 Specimen Type Catherized urine 12/18/16 21:15 Urine Color Dark yellow (YELLOW) 12/18/16 21:15 Urine Appearance Slightly hazy (CLEAR) 12/18/16 21:15 Urine pH 5.0 (5.0 - 8.0) 12/18/16 21:15 Ur Specific [place] 1.020 (1.000-1.030) 12/18/16 21:15 Urine Protein 3+ (NEGATIVE) 12/18/16 21:15 Urine Glucose (UA) Negative (NEGATIVE) 12/18/16 21:15 Urine Ketones Negative (NEGATIVE) 12/18/16 21:15 Urine Occult Blood 5+ (NEGATIVE) 12/18/16 21:15 Urine Nitrite Negative (NEGATIVE) 12/18/16 21:15 Urine Bilirubin 1+ (NEGATIVE) 12/18/16 21:15 Urine Urobilinogen 4+ (NORMAL) 12/18/16 21:15 Ur Leukocyte Esterase Negative (NEGATIVE) 12/18/16 21:15 Urine RBC 8-10 /HPF (NEGATIVE) 12/18/16 21:15 Urine WBC 2-3 /HPF (NEGATIVE) 12/18/16 21:15 Ur Squamous Epith Cells Negative /HPF (NEGATIVE) 12/18/16 21:15 Amorphous Sediment 2+ /HPF (NEGATIVE) 12/18/16 21:15 Urine Bacteria Trace /HPF (NEGATIVE) 12/18/16 21:15 Granular Casts Few /LPF (NEGATIVE) 12/18/16 07:50 Ur Culture Indicated? No/not indicated 12/18/16 21:15 - Plan (1) New onset a-fib Status: Acute Plan: CARDIZEM CD 180MG PO DAILY, DIGOXIN 250MCG IV X 1 DOSE, MONITOR LABS AND EKGs (2) Generalized weakness Status: Acute Plan: NS @ 150ML/HE, REPLACE ELECTROLYTES, CONTINUE TO MONITOR (3) Hypokalemia Status: Acute Plan: POTASSIUM PROTOCOL, CONTINUE TO MONITOR (4) Near syncope Status: Acute Plan: CONTINUE TO MONITOR
[2016-12-20] MEDS: FLOMAX PO SCH (20:58)
[2016-12-20] MEDS: XARELTO PO SCH (20:59)
[2016-12-20] MEDS: ZOCOR TAB 40 MG PO SCH (21:00)
[2016-12-21] MEDS: DUONEB 0.5 MG/3 MG NEB SCH ×4 (00:57→13:41)
[2016-12-21 06:14] LABS: ALANINE AMINOTRANSFERASE 29 Units/L (12-78); ALBUMIN 2.4 g/dL (3.4-5.0); ALKALINE PHOSPHATASE 162 Units/L (46-116); ASPARTATE AMINO TRANSFERASE 43 Units/L (15-37); BLOOD UREA NITROGEN 12 mg/dL (7-18); CALCIUM 7.9 mg/dL (8.5-10.1); CHLORIDE 105 mmol/L (98-107); COR CA(FOR HYPOALB) 9.2 mg/dL (8.5-10.1); CREATININE 1.16 mg/dL (0.70-1.30); DIGOXIN < 0.20 ng/mL (0.9-2); GLUCOSE 105 mg/dL (65-99); SODIUM 142 mmol/L (136-145); TOTAL PROTEIN 6.2 g/dL (6.4-8.2); eGFR BLACK RACES > 60 (>60); eGFR NON BLACK RACES > 60 (>60)
[2016-12-21 06:21] LABS: BASOPHILS % (AUTO) 0.3 % (0.2-1.0); EOSINOPHILS % (AUTO) 0.6 % (0.9-2.9); HEMOGLOBIN 12.5 g/dL (13.5-18.0); LYMPHOCYTES # (AUTO) 0.6 X10^3/uL (1.3-2.9); LYMPHOCYTES % (AUTO) 8.6 % (21.0-51.0); MEAN CORPUSCULAR HEMOGLOBIN 32.3 pg (27.0-34.0); MEAN CORPUSCULAR HGB CONC 34.8 g/dL (33.0-35.0); MEAN CORPUSCULAR VOLUME 92.8 fL (80.0-100.0); MEAN PLATELET VOLUME 7.9 fL (7.4-11.0); MONOCYTES # (AUTO) 0.5 x10^3/uL (0.3-0.8); MONOCYTES % (AUTO) 7.1 % (0.0-13.0); NEUTROPHILS # (AUTO) 5.9 x10^3/uL (2.2-4.8); NEUTROPHILS % (AUTO) 83.4 % (42.0-75.0); PLATELET COUNT 165 X10^3/uL (150.0-450.0); RED BLOOD COUNT 3.88 X10^6/uL (4.7-6.0); RED CELL DISTRIBUTION WIDTH 14.2 % (11.6-16.5)
[2016-12-21] MEDS: ALBUMIN HUMAN 25%- 100ML 100 ML IV SCH (09:50)
[2016-12-21] MEDS: LASIX PO SCH (09:51)
[2016-12-21] MEDS: CARDIZEM CD 180 MG PO SCH (09:51)
[2016-12-21] MEDS: LOPRESSOR TAB 50 MG PO SCH (09:51)
[2016-12-21] MEDS: SYNTHROID 137 mcg TAB PO SCH (09:51)
[2016-12-21] MEDS: CORDARONE TAB 200 MG PO SCH ×2 (10:56→17:23)
[2016-12-21] MEDS ORDERED: LANOXIN PO SCH (11:00)
--- NOTE | 2016-12-21 13:20 | PCM.PROG ---
Progress Note - Progress Note for Day of Date: 12/21/16 - Subjective Subjective: IS ALERT AND ORIENTED, LYING IN BED ON MORNING ROUNDS. HE IS MUCH MORE ALERT THAN YESTERDAY. PATIENT'S FAMILY IS AT BEDSIDE. HE HAS NO COMPLAINTS THIS AM. HE DENIES SHORTNESS OF BREATH OR WEAKNESS. LUNGS ARE CLEAR TO AUSCULTATION THIS AM. VITALS ARE 98.3-103-22-96%-120/63. CBC WNL EXCEPT WBC 7.0, RBC 3.88, HGB 12.5, HCT 36. CMP WNL EXCEPT POTASSIUM 3.2, GLUCOSE 105, CALCIUM 7.9, AST 43, ALKALINE PHOSPHATASE 162, TOTAL PROTEIN 6.2, ALBUMIN 2.4. EKG OBTAINED THIS AM REPORTED A-FIB WITH RATE OF 110. ECHO REPORTED EJECTION FRACTION OF 65%. WE WILL START PATIENT ON DIGOXIN 0.125MG PO DAILY, AMIODERONE 200MG PO BID, AND CARDIZEM 240MG PO DAILY. WE PLAN TO RECHECK LABS AND EKG FOLLOW UP WITH PATIENT IN AM. - Past Medical Family Social History Past Med/Fam/Surg Hx: No changes since H&P Allergies: Allergies lorazepam [From Ativan] Adverse Reaction (Verified 12/19/16 16:25) - Review of Systems ROS: No change since H&P - Vital Signs and I&O's Vital Signs: Temperature 98.3 F Pulse Rate [Right Brachial] 78 Pulse Rate 88 Respiratory Rate 21 Blood Pressure [Right Arm] 104/72 Blood Pressure [Left Arm] 106/58 Blood Pressure 121/65 O2 Sat by Pulse Oximetry 94 Intake and Output: Intake & Output 12/19/16 12/20/16 12/21/16 12/22/16 11:59 11:59 11:59 11:59 Intake Total 3314 1682 440 Output Total 700 100 Balance 2614 1682 340 - Physical Exam Oriented: Normal. negative: Time, Person, Place, Not Oriented, Unable to test, Other Eyes: Normal. negative: Blurred Vision, Diplopia, Discharge, Pain, Redness, Photophobia, Other Ear: Normal. negative: Right, Left, Swelling, Ecchymosis, Hemotypanum, Abrasion , Laceration Nose: Normal. negative: Injected, Discharge, Blood, Other Throat: Normal. negative: Tonsillar Hypertrophy, Red, Exudate, Dry, Other Respiratory: Right, Left, Wheezes Cardiovascular: Tachycardia. negative: Normal, Bradycardia, Irregular, S3, S4, Systolic, Diastolic, Murmur, Edema, Other : Normal. negative: Dysuria, Hematuria, Frequency, Discharge, Testicular Pain , Bleeding, , Other Auscultation: Bowel Sounds: Normal. negative: Bruit, Absent, Increased, Decreased, High Pitched, Other Tenderness: Normal. negative: Diffuse, RUQ, RLQ, LUQ, LLQ, Epigastric, Periumbilical, Suprapubic, Mild, Moderate, Severe, Rebound, Guarding, Rigidity, Other Skin: negative: Normal, Decreased Turgur, Rash, Papular, Macular, Maculopapular , Vesicular, Pustular, Petechial, Red, Tender, Hot, Diaphoresis, Wound, Bruising , Ecchymosis, Other Musculoskeletal: Normal. negative: Right, Left, Shoulder, Clavicle, Arm, Elbow , Forearm, Wrist, Hand, Hip, Thigh, Knee, Leg, Ankle, Foot, Back:Thoracic, Back: Lumbar, Back:Midline, Back:Paraspinous, Pelvis, Swelling, Tender, Deformity, Pulse Deficit, Motor Deficit, Sensory Deficit, Instability, Crepitance Psychiatric: Normal. negative: Anxiety, Depression, Agitation, Other Mood Description: Calm. negative: Angry, Apathetic, Depressed, Fearful, Flat, Happy, Hostile, Sad, Suspicious, Withdrawn, Anxious, Appropriate, Labile Affect: Normal Speech Pattern: Unclear - Laboratory and Diagnostics Result Diagrams: 12/21/16 04:55 12/21/16 04:55 Labs: Laboratory WBC 7.0 X10^3/uL (3.6-10.0) 12/21/16 04:55 RBC 3.88 X10^6/uL (4.7-6.0) L 12/21/16 04:55 Hgb 12.5 g/dL (13.5-18.0) L 12/21/16 04:55 Hct 36.0 % (42.0-54.0) L 12/21/16 04:55 MCV 92.8 fL (80.0-100.0) 12/21/16 04:55 MCH 32.3 pg (27.0-34.0) 12/21/16 04:55 MCHC 34.8 g/dL (33.0-35.0) 12/21/16 04:55 RDW 14.2 % (11.6-16.5) 12/21/16 04:55 Plt Count 165 X10^3/uL (150.0-450.0) 12/21/16 04:55 Plt Count Comment Decreased (ADEQUATE) 12/18/16 07:35 MPV 7.9 fL (7.4-11.0) 12/21/16 04:55 Neut % 83.4 % (42.0-75.0) H 12/21/16 04:55 Lymph % 8.6 % (21.0-51.0) L 12/21/16 04:55 [place] % 7.1 % (0.0-13.0) 12/21/16 04:55 Eos % 0.6 % (0.9-2.9) L 12/21/16 04:55 Baso % 0.3 % (0.2-1.0) 12/21/16 04:55 Neut # 5.9 x10^3/uL (2.2-4.8) H 12/21/16 04:55 Lymph # 0.6 X10^3/uL (1.3-2.9) L 12/21/16 04:55 [place] # 0.5 x10^3/uL (0.3-0.8) 12/21/16 04:55 Eos # 0.0 x10^3/uL (0.0-0.2) 12/21/16 04:55 Baso # 0.0 X10^3/uL (0.0-0.1) 12/21/16 04:55 Absolute Nucleated RBC 0.0 /100WBC 12/21/16 04:55 Total Counted 100 12/18/16 07:35 Neutrophils % (Manual) 87 % (39-76) H 12/18/16 07:35 Band Neutrophils % 5 % (0-10) 12/18/16 07:35 Lymphocytes % (Manual) 4 % (13-43) L 12/18/16 07:35 Monocytes % (Manual) 4 % (4-9) 12/18/16 07:35 Plt Morphology Comment Normal (NORMAL) 12/18/16 07:35 RBC Morphology Normal (NORMAL) 12/18/16 07:35 INR Target Range - 08/22/17 04:30 INR 1.39 (0.8-1.3) H 12/19/16 04:30 PTT 41.9 SECONDS (22.9-36.5) H 12/19/16 04:30 PTT Comment - 12/19/16 04:30 Sodium 142 mmol/L (136-145) 12/21/16 04:55 Corrected Sodium TNP 12/21/16 04:55 Potassium 3.2 mmol/L (3.5-5.1) L 12/21/16 04:55 Chloride 105 mmol/L (98-107) 12/21/16 04:55 Carbon Dioxide 28.0 mmol/L (21-32) 12/21/16 04:55 BUN 12 mg/dL (7-18) 12/21/16 04:55 Creatinine 1.16 mg/dL (0.70-1.30) 12/21/16 04:55 Est GFR (MDRD) Af Amer > 60 (>60) 12/21/16 04:55 Est GFR (MDRD) Non-Af > 60 (>60) 12/21/16 04:55 Glucose 105 mg/dL (65-99) H 12/21/16 04:55 Calcium 7.9 mg/dL (8.5-10.1) L 12/21/16 04:55 Corrected Calcium 9.2 mg/dL (8.5-10.1) 12/21/16 04:55 Magnesium 2.0 mg/dL (1.7-2.9) 12/18/16 07:35 Total Bilirubin 0.80 mg/dL (0.2-1.0) 12/21/16 04:55 AST 43 Units/L (15-37) H 12/21/16 04:55 ALT 29 Units/L (12-78) 12/21/16 04:55 Alkaline Phosphatase 162 Units/L (46-116) H 12/21/16 04:55 Creatine Kinase 172 Units/L (39-308) 12/18/16 20:15 CK-MB (CK-2) 3.2 ng/mL (0-4.0) 12/18/16 20:15 CK/CKMB % Calc 1.9 % (<4) 12/18/16 20:15 Troponin I 0.06 ng/mL (0-1.5) 12/18/16 20:15 Total Protein 6.2 g/dL (6.4-8.2) L 12/21/16 04:55 Albumin 2.4 g/dL (3.4-5.0) L 12/21/16 04:55 Globulin 3.8 g/dL (2.5-4.5) 12/21/16 04:55 Albumin/Globulin Ratio 0.6 Ratio (1.1-2.1) L 12/21/16 04:55 Triglycerides 93 mg/dL (0-150) 12/19/16 04:30 Cholesterol 62 mg/dL (0-200) 12/19/16 04:30 LDL Cholesterol, Calc 34 mg/dL (0-100) 12/19/16 04:30 HDL Cholesterol 9 mg/dL (40-60) L 12/19/16 04:30 Cholesterol/HDL Ratio 6.9 (0.0-5.0) H 12/19/16 04:30 Specimen Type Catherized urine 12/18/16 21:15 Urine Color Dark yellow (YELLOW) 12/18/16 21:15 Urine Appearance Slightly hazy (CLEAR) 12/18/16 21:15 Urine pH 5.0 (5.0 - 8.0) 12/18/16 21:15 Ur Specific [place] 1.020 (1.000-1.030) 12/18/16 21:15 Urine Protein 3+ (NEGATIVE) 12/18/16 21:15 Urine Glucose (UA) Negative (NEGATIVE) 12/18/16 21:15 Urine Ketones Negative (NEGATIVE) 12/18/16 21:15 Urine Occult Blood 5+ (NEGATIVE) 12/18/16 21:15 Urine Nitrite Negative (NEGATIVE) 12/18/16 21:15 Urine Bilirubin 1+ (NEGATIVE) 12/18/16 21:15 Urine Urobilinogen 4+ (NORMAL) 12/18/16 21:15 Ur Leukocyte Esterase Negative (NEGATIVE) 12/18/16 21:15 Urine RBC 8-10 /HPF (NEGATIVE) 12/18/16 21:15 Urine WBC 2-3 /HPF (NEGATIVE) 12/18/16 21:15 Ur Squamous Epith Cells Negative /HPF (NEGATIVE) 12/18/16 21:15 Amorphous Sediment 2+ /HPF (NEGATIVE) 12/18/16 21:15 Urine Bacteria Trace /HPF (NEGATIVE) 12/18/16 21:15 Granular Casts Few /LPF (NEGATIVE) 12/18/16 07:50 Ur Culture Indicated? No/not indicated 12/18/16 21:15 Digoxin < 0.20 ng/mL (0.9-2) L 12/21/16 04:55 - Plan (1) New onset a-fib Status: Acute Plan: CARDIZEM CD 180MG PO DAILY, DIGOXIN 250MCG IV X 1 DOSE, MONITOR LABS AND EKGs (2) Generalized weakness Status: Acute Plan: NS @ 150ML/HE, REPLACE ELECTROLYTES, CONTINUE TO MONITOR (3) Hypokalemia Status: Acute Plan: POTASSIUM PROTOCOL, CONTINUE TO MONITOR (4) Near syncope Status: Acute Plan: CONTINUE TO MONITOR
[2016-12-21 16:33] VITALS: BP 143/77
[2016-12-22] MEDS ORDERED: CARDIZEM CD 240 MG PO SCH (09:00)
--- NOTE | 2016-12-27 01:57 | DR.CARTERD ---
- Discharge Summary for: Discharge Summary for Date of:: 12/21/16 - Admission Date Date of Admission: 12/18/16 - Admission Diagnoses Admission Diagnosis: (1) New onset a-fib (2) Near syncope (3) Hypokalemia (4) Generalized Weakness - Discharge Date Discharge Date: 12/21/16 - Discharge Diagnoses Discharge Diagnosis: (1) New onset a-fib (2) Near syncope (3) Hypokalemia (4) Generalized Weakness - Hospital Course Hospital Course: DAY ONE OF HOSPITAL STAY, IS A 81 YEAR OLD PATIENT OF OURS WHO PRESENTED TO THE EMERGENCY ROOM WITH COMPLAINTS OF WEAKNESS, NAUSEA, VOMITING, AND CONFUSION. PATIENT'S FAMILY REPORTED THAT PATIENT HAD BEEN "TALKING OUT OF HIS HEAD" SINCE SUNDAY. PATIENT'S FAMILY REPORTED THAT PATIENT WAS BROKE DOWN IN HIS CAR A FEW DAYS AGO AND NEARLY PASSED OUT AFTER SITTING IN THE HEAT. ON ARRIVAL TO ER, PATIENT WAS PLACED ON QUALITATIVE FIELD COORDINATOR WHERE HE WAS FOUND TO BE IN ATRIAL FIBRILLATION WITH A RATE OF 173. HE SPONTANEOUSLY CONVERTED TO SINUS TACHYCARDIA. HE WAS GIVEN A BOLUS OF ADENOSINE. HE CONTINUED TO BE TACHYCARDIC, WITH A VARIABLE RATE. ON ARRIVAL TO ER, VITALS WERE 100.0-994-60-100%-121/65. CBC WNL EXCEPT RBC 4.46, HCT 41.6. CMP WNL EXCEPT POTASSIUM 3.2, BUN 22, CREATININE 1.60, GLUCOSE 121, CALCIUM 8.4, TOTAL BILIRUBIN 1.80, AST 53, ALKALINE PHOSPHATASE 126, ALBUMIN 2.6. INR 2.05, PTT 39. URINALYSIS REPORTED WBC 0-3, RBC 5-10, LEUKOCYTES NEGATIVE, PROTEIN 3+, TRACE OF BACTERIA, NITRATES NEGATIVE, OCCULT BLOOD 5+. CHEST XRAY NEGATIVE. EKG REPORTED ATRIAL FIBRILLATION WITH RVR, PAIRED PVCs.HE WAS GIVEN A NS BOLUS AND STARTED ON A CARDIZEM DRIP. WE ADMITTED PATIENT FOR FURTHER TREATMENT AND EVALUATION. WE STARTED HIM ON NS @ 150ML/HR, CONTINUED CARDIZEM DRIP, AND STARTED PATIENT ON THE POTASSIUM PROTOCOL. WE PLANNED TO RECHECK LABS AND FOLLOW UP WITH PATIENT IN AM. DAY TWO OF HOSPITAL STAY, WAS ALERT AND ORIENTED ON MORNING ROUNDS. HE WAS LYING IN BED WITH SPOUSE AND DAUGHTER AT BEDSIDE. HE WAS NOTED WITH COMPLAINTS OF WEAKNESS ON MORNING ROUNDS. HE WAS NOTED WITH CLEAR LUNGS ON AUSCULTATION. BOWEL SOUNDS WERE NORMAL IN ALL QUADRANTS. QUALITATIVE FIELD COORDINATOR REPORTED ATRIAL FIBRILLATION WITH HR OF 105. VITALS WERE 97.2-569-89-100%-132/ 80. CBC WNL EXCEPT RBC 3.78, HGB 12.1, HCT 35.4. CMP WNL EXCEPT CHLORIDE 108, GLUCOSE 108, CALCIUM 7.5, TOTAL BILIRUBIN 1.40, ALT 47, ALKALINE PHOSPHATASE 131 , TOTAL PROTIEN 5.9, ALBUMIN 2.1, HDL CHOLESTEROL 9, CHOLESTEROL 6.9. INR 1.39, PTT 41.9. EKG REPORTED ATRIAL FIBRILLATION WITH RATE OF 106. STAFF REPORTED THAT PATIENT WAS AGITATED THROUGHOUT THE NIGHT. WE DISCONTINUED THE ATIVAN AND CONTINUED RESTORIL. WE START CARDIZEM CD 180MG DAILY AND PLANNED TO WEAN OFF CARDIZEM DRIP. WE CONTINUED TO MONITOR. DAY THREE OF HOSPITAL STAY, WAS LYING IN BED ON MORNING ROUNDS WITH EYES CLOSED. HE AWAKENED AND RESPONDED TO VERBAL STIMULI. PATIENT'S FAMILY WAS AT BEDSIDE. HE WAS NOTED WITH COMPLAINTS OF SHORTNESS OF BREATH. LUNGS WERE NOTED WITH WHEEZING BILATERALLY ON AUSCULTATION. VITALS WERE 98.1-115-22-97%-110 /68. CBC WNL EXCEPT WBC 10.2, RBC 3.79, HGB 12.3, HCT 35.7. CMP WNL EXCEPT SODIUM 141, POTASSIUM 3.3, CALCIUM 7.7, ALKALINE PHOSPHATASE 151, TOTAL PROTEIN 6.2, ALBUMIN 2.4. EKG REPORTED A-FIB WITH RATE OF 96. CHEST XRAY REPORTED MILD CARDIOMEGALY WITH OUT CHF, LUNGS CLEAR. WE ADMINISTERED DIGOXIN 250MCG IV X 1 AND LASIX 20MG IV X 1 DOSE. WE STARTED DUONEBS Q4H AND OBTAINED AN ECHO. DAY FOUR OF HOSPITAL STAY, WAS ALERT AND ORIENTED, LYING IN BED ON MORNING ROUNDS. HE WAS MUCH MORE ALERT THAN THE DAY BEFORE. PATIENT'S FAMILY WAS AT BEDSIDE. HE HAD NO COMPLAINTS. HE DENIED SHORTNESS OF BREATH OR WEAKNESS. LUNGS WERE CLEAR TO AUSCULTATION. VITALS WERE 98.3-103-22-96%-120/63. CBC WNL EXCEPT WBC 7.0, RBC 3.88, HGB 12.5, HCT 36. CMP WNL EXCEPT POTASSIUM 3.2 , GLUCOSE 105, CALCIUM 7.9, AST 43, ALKALINE PHOSPHATASE 162, TOTAL PROTEIN 6.2 , ALBUMIN 2.4. EKG: A-FIB WITH RATE OF 110. ECHO REPORTED EJECTION FRACTION OF 65%. WE PLANNED FOR DISCHARGE. WE STARTED PATIENT ON DIGOXIN 0.125MG PO DAILY, AMIODERONE 200MG PO BID, AND CARDIZEM 240MG PO DAILY. INSTRUCTIONS FOR MEDICATIONS AND FOLLOW UP WERE GIVEN TO PATIENT AND FAMILY, BOTH VOICED UNDERSTANDING. PATIENT DISCHARGED HOME IN STABLE CONDITION WITH FAMILY. - Discharge Medications Discharge Medications: Furosemide 40 mg PO DAILY 12/18/16 [History] Levothyroxine Sodium [Levoxyl] 137 mcg PO DAILY 12/18/16 [History] Metoprolol Tartrate 25 mg PO BID 12/18/16 [History] Rivaroxaban [Xarelto] 20 mg PO DAILY 12/18/16 [History] Simvastatin 40 mg PO HS 12/18/16 [History] Tamsulosin HCl 0.4 mg PO HS 12/18/16 [History] Ubidecarenone [Co Q10] 200 mg PO DAILY 12/18/16 [History] Amiodarone HCl [CORDARONE tab 200 mg *] 200 mg PO BIDWM #60 tab 12/21/16 [Rx] Digoxin [LANOXIN TAB 0.125 MG *] 0.125 mg PO DAILY #30 tab 12/21/16 [Rx] Diltiazem HCl Ext Rel [CARDIZEM CD 240 mg (24 hr) *] 240 mg PO DAILY #30 cap [Rx] - Discharge Disposition Discharge Disposition: PATIENT IS TO FOLLOW UP IN OUR OFFICE ON 12/25/16.
== END 2016-12-21 17:10 | disposition home or self-care (01) | DRG 310 ==
LOC: ER 07:18 → ICU 09:39
PROVIDERS: ADMIT Internal Medicine; ATTEND Internal Medicine
DX: I48.91 Unspecified atrial fibrillation (principal); E87.6 Hypokalemia; R55 Syncope and collapse; R53.1 Weakness; R11.2 Nausea with vomiting, unspecified; K21.9 Gastro-esophageal reflux disease without esophagitis; I10 Essential (primary) hypertension; E03.8 Other specified hypothyroidism; R06.02 Shortness of breath; I51.7 Cardiomegaly; R79.1 Abnormal coagulation profile
CPT/HCPCS: 36415; 71010; 80053; 80061; 80162; 81001; 82550; 82553; 83735; 84132; 84484; 85025; 85610; 85730; 93005; 93010; 93041; 93306; 94640; 96365; 96367; 96374; 96375; 99284; 99285; A4222; P9047; J0150; J1160; J1940; J3490; J7620